=== PATIENT | male | born 1970 | race Caucasian/White ===

== ENCOUNTER 2020-11-23 08:20 | Outpatient (CLI) | payer BC ==
[2020-11-23 17:37] LABS: #Basophils 0.1 10x3/uL (0.0-0.2); #Eosinphils 0.3 10x3/uL (0.0-0.5); #Monocytes 0.6 10x3/uL (0.0-1.1); #Neutrophils 3.1 10x3/uL (1.5-8.4); %Basophils 0.9 % (0.0-2.0); %Eosinophils 4.3 % (0.0-6.0); %Lymphocytes 31.9 % (18.0-47.0); %Monocytes 9.5 % (0.0-10.0); %Neutrophils 53.2 % (40.0-75.0); Hemoglobin 16.6 g/dL (14.0-18.0); Mean Corpuscular HGB CONC 34.2 G/DL (32.0-36.0); Mean Corpuscular Hemoglobin 32.3 PG (27.0-33.0); Mean Corpuscular Volume 94.4 fl (80.0-100.0); Mean Platelet Volume 10.7 fl (7.4-10.4); Platelet Count 247 10x3/uL (130-400); RBC Distribution Width 12.8 % (11.5-14.5); Red Blood Cell (RBC) Count 5.14 10x6/uL (4.40-5.80); White Blood Cell (WBC) Count 5.8 10x3/uL (4.5-11.0)
[2020-11-23 18:46] LABS: Anion Gap 15 mmol/L (10-20); BUN (Urea Nitrogen) 19 mg/dL (8.9-20.6); Calc. Creatinine Clearance 0 mL/min (70-130); Calcium 8.9 mg/dL (7.8-10.44); Carbon Dioxide 24 mmol/L (22-29); Chloride 105 mmol/L (98-107); Glucose 91 mg/dL (70-105); Potassium 4.2 mmol/L (3.5-5.1); Sodium 140 mmol/L (136-145)
[2020-11-24 04:17] LABS: SARS-CoV-2 PCR by NAA Not Detected (NotDetected)
== END 2020-11-23 08:21 | disposition home or self-care (01) ==
LOC: LABBT 08:20
PROVIDERS: ATTEND Surgery
DX: Z01.812 Encounter for preprocedural laboratory examination (principal); K40.90 Unilateral inguinal hernia, without obstruction or gangrene, not specified as recurrent; Z20.822 Contact with and (suspected) exposure to COVID-19; K42.9 Umbilical hernia without obstruction or gangrene
CPT/HCPCS: 80048; 85025; 87635; U0003; U0005

== ENCOUNTER 2020-11-28 07:45 | Day surgery (SDC) | payer BC ==
[2020-11-26 15:27] VITALS: BMI 25.8
[2020-11-28] MEDS ORDERED: Fentanyl 100 MCG/2 ML VIAL ONE ×2 (08:49→12:03)
[2020-11-28] MEDS ORDERED: Midazolam HCl 2 mg/2 ml Vial ONE (08:49)
[2020-11-28] MEDS ORDERED: Lidocaine 1% PF 5 ML VIAL ONE (08:57)
[2020-11-28] MEDS ORDERED: Dexamethasone 20 MG/5 ML VIAL ONE (08:57)
[2020-11-28] MEDS ORDERED: Glycopyrrolate 0.2 MG/ML 5 ML SYRINGE ONE (08:57)
[2020-11-28] MEDS ORDERED: Ondansetron PF 4 MG/2 ML Vial ONE (08:57)
[2020-11-28] MEDS ORDERED: Rocuronium Bromide 10 MG/ML (10ML VIAL) ONE (08:57)
[2020-11-28] MEDS ORDERED: PHENYLEPHRINE-NS 100 MCG/ML 10 ML SYRINGE ONE (08:57)
[2020-11-28] MEDS ORDERED: Ketorolac Tromethamine 30 MG/ML VIAL ONE (08:57)
[2020-11-28] MEDS ORDERED: PROPOFOL 200 MG/20 ML VIAL ONE (08:57)
[2020-11-28] MEDS ORDERED: Bupivacaine 0.25% HCL 30 ML VIAL ONE (09:30)
[2020-11-28] MEDS ORDERED: XYLOCAINE 2%-EPI 1:100,000 20 ML VIAL ONE (09:30)
--- NOTE | 2020-11-28 17:42 | OP ---
DATE OF PROCEDURE: 11/28/2020 PREOPERATIVE DIAGNOSES: Right inguinal hernia, umbilical hernia. POSTOPERATIVE DIAGNOSES: Right inguinal hernia, umbilical hernia. PROCEDURES PERFORMED: 1. Da Nacho laparoscopic right inguinal hernia repair with mesh, 3DMax large. 2. Umbilical hernia repair with mesh, Ventralex ST small. ANESTHESIA: General. ESTIMATED BLOOD LOSS: Minimal. COMPLICATIONS: None. SPECIMEN: None. FINDINGS: Right inguinal hernia, umbilical hernia. DESCRIPTION OF PROCEDURE: The patient was taken to the operating room and laid supine on the operating table. After general anesthetic was obtained, the Calles was placed. The abdomen was shaved, prepped, and draped in a sterile fashion. A curved incision was made above the umbilicus. Cautery was dissected down to and score the fascia. Abdominal cavity was entered bluntly using a Joycelyn clamp. An 11 mm balloon trocar was placed. High-flow pneumoperitoneum was obtained. Left and right abdominal 8 mm robot trocars were placed. All ports were docked to the robot. Surgeon goes to the console. There was a right inguinal hernia. There was no left inguinal hernia. The peritoneum was opened in the right groin and dissected to pubic tubercle medially, anterior superior iliac crest laterally. Shelving edge of the inguinal ligament was fully exposed. The indirect hernia sac was dissected away from the other cord structures, high up on to the peritoneum. There was no direct sac. 3DMax large mesh was brought into the sterile field. The M-labeled medial aspect was placed over pubic tubercle medially. The mesh was laid out to cover the femoral direct and indirect areas. The mesh was sewn to the posterior fascia laterally using Vicryl, 3-0 Stratafix was used to reapproximate the peritoneum. All needles were removed from the abdomen and accounted for. All ports were removed under camera visualization. Pneumoperitoneum was let down. The umbilical stalk was amputated exposing umbilical defect. The Ventralex ST small was brought into the sterile field, placed into the preperitoneal space. Its tails laid out lateral. Tails were sewn via U-stitch of permanent braided suture to the edges of the fascia. The fascia was closed over the mesh. The wound was irrigated. The umbilical stalk was tacked back down using 3-0 Vicryl, skin was closed using running 4-0 Monocryl and Dermabond. The patient was sent to Recovery in stable condition. All instrument counts, needle counts, and lap counts were correct. Job ID: [id number]
== END 2020-11-28 15:15 | disposition home or self-care (01) ==
LOC: SDC 07:45
PROVIDERS: ATTEND Surgery
PROC: 0WUF0JZ Supplement Abdominal Wall with Synthetic Substitute, Open Approach (ICD-10-PCS; principal; 2020-11-28)
PROC: 0YU54JZ Supplement Right Inguinal Region with Synthetic Substitute, Percutaneous Endoscopic Approach (ICD-10-PCS; principal; 2020-11-28)
DX: K40.90 Unilateral inguinal hernia, without obstruction or gangrene, not specified as recurrent (principal); K42.9 Umbilical hernia without obstruction or gangrene; F17.210 Nicotine dependence, cigarettes, uncomplicated; Z88.4 Allergy status to anesthetic agent
CPT/HCPCS: 51798; C1781; J0690; J1100; J1885; J2250; J2405; J2704; J3010; S0020